=== PATIENT | female | born 1975 | race Caucasian/White ===

== ENCOUNTER 2019-05-13 00:31 | Emergency (ER) | payer OTHER, MEDICARE ==
[~2019-05-13] VITALS: Ht 160 cm; Wt 102.7 kg
[~2019-05-13 00:31] MED LIST: ACTOS 45MG45 MG/TAB PO; ALDACTONE 25MG25 M1 PO; CAMBIA50 MG PO; CELEXA 20MG20 MG/TAB PO; CLINDAMAX TP; COREG 6.256.25 MG/TA PO; DESYREL 50MG50 MG PO; GLUCOPHAGE1000 MG PO; GLUCOTROL10 MG PO; LEVOXYL0.175 MG PO; LORTAB 5/500 501 TAB PO; NEURONTIN300 MG/CAP PO; PLAQUENIL 200M200 MG PO; PRAVACHOL 20MG20 MG PO; PRINZIDE 25 MG-1 TAB PO; SOMA 350MG350 MG/TAB PO; [UNRECOGNIZED DRUG - OTHER] PO
[2019-05-13 00:51] VITALS: TEMP 98.5
[2019-05-13 01:23] LABS: BASO # 0.1 (0.0-0.2); BASO % 0.8 % (0.0-2.0); EOS # 0.2 (0.0-0.7); EOS % 1.4 % (0-4.0); GRAN # 11.3 (1.4-6.5); GRAN % 70.6 % (42.2-75.2); HEMATOCRIT 41.3 % (37.0-47.0); HEMOGLOBIN 14.3 g/dl (12.5-16.0); LYMPH # 3.7 (1.2-3.4); LYMPH % 23.1 % (20.0-51.0); MEAN CELL VOLUME 85 fl (80.0-100.0); MEAN CORPUSCULAR HEMOGLOBIN 30 pg (27.0-31.0); MEAN CORPUSCULAR HGB CONC 35 g/dl (33.0-37.0); MEAN PLATELET VOLUME 10.3 fl (7.4-10.4); MONO # 0.6 (0.1-0.6); MONO % 3.7 % (1.7-9.3); PLATELET COUNT 354 K/mm3 (130-400); RED BLOOD COUNT 4.85 M/mm3 (4.10-5.30); REDCELL DISTRIBUTION WIDTH-CV 13.2 % (11.5-14.5)
[2019-05-13 01:36] LABS: ALBUMIN 3.9 gm/dL (3.5-5.0); BILIRUBIN,TOTAL 0.4 mg/dL (0.0-1.0); CALCIUM 9.4 mg/dL (8.4-10.2); CREATININE, serum 1.18 (0.52-1.25); POTASSIUM 3.8 mmol/L (3.4-5.0)
[2019-05-13] MEDS ORDERED: NORCO 325 MG-101 TAB PO (03:18)
[2019-05-13] MEDS ORDERED: DOXYCYCLINE HY100 MG PO (03:19)
[2019-05-13 03:28] LABS: COLLECTION METHOD CLEAN CATCH
[2019-05-13] MEDS ORDERED: PROMETHAZINE12.5 M5 PO (03:35)
[2019-05-13 03:42] LABS: PH 7 (5-8); SQUAMOUS EPITHELIAL 0-2 /hpf; URINE APPEARANCE Clear; URINE BACTERIA None Seen /hpf; URINE BILIRUBIN Negative (NEGATIVE); URINE BLOOD Negative (NEGATIVE); URINE COLOR Yellow; URINE GLUCOSE Negative (NEGATIVE); URINE KETONE Trace (NEGATIVE); URINE LEUKOCYTE ESTERASE Negative (NEGATIVE); URINE NITRATE Negative (NEGATIVE); URINE PROTEIN(semi-quant) Negative (NEGATIVE); URINE RBC 0-2 /hpf; URINE UROBILINOGEN Negative (NEGATIVE)
[2019-05-13 03:48] VITALS: BP 107/62; PULSE 78
== END 2019-05-13 03:53 | disposition home or self-care (01) ==
LOC: COL.ER 00:31
PROVIDERS: Nurse Practitioner Primary Care
DX: K52.9 Noninfective gastroenteritis and colitis, unspecified (principal); M79.7 Fibromyalgia; G43.909 Migraine, unspecified, not intractable, without status migrainosus; E11.9 Type 2 diabetes mellitus without complications; E03.9 Hypothyroidism, unspecified; I10 Essential (primary) hypertension; F17.210 Nicotine dependence, cigarettes, uncomplicated; Z90.710 Acquired absence of both cervix and uterus; Z79.84 Long term (current) use of oral hypoglycemic drugs
CPT/HCPCS: J2405; J2550; J7030; Q9967

== ENCOUNTER 2019-05-20 21:01 | Emergency (ER) | payer OTHER, MEDICARE ==
[~2019-05-20] VITALS: Ht 160 cm; Wt 102.7 kg
[~2019-05-20 21:01] MED LIST changes: +DOXYCYCLINE HY100 MG PO; +NORCO 325 MG-101 TAB PO; +PROMETHAZINE12.5 M5 PO
[2019-05-20 21:14] VITALS: TEMP 98.1
[2019-05-20 21:46] LABS: BASO # 0.1 (0.0-0.2); BASO % 0.7 % (0.0-2.0); EOS # 0.4 (0.0-0.7); EOS % 2.4 % (0-4.0); GRAN # 9.8 (1.4-6.5); GRAN % 66.4 % (42.2-75.2); HEMATOCRIT 41.4 % (37.0-47.0); LYMPH # 3.7 (1.2-3.4); LYMPH % 25.1 % (20.0-51.0); MEAN CELL VOLUME 86 fl (80.0-100.0); MEAN CORPUSCULAR HEMOGLOBIN 29 pg (27.0-31.0); MEAN CORPUSCULAR HGB CONC 34 g/dl (33.0-37.0); MEAN PLATELET VOLUME 10.9 fl (7.4-10.4); MONO # 0.8 (0.1-0.6); MONO % 5.1 % (1.7-9.3); PLATELET COUNT 302 K/mm3 (130-400); RED BLOOD COUNT 4.82 M/mm3 (4.10-5.30); REDCELL DISTRIBUTION WIDTH-CV 13.2 % (11.5-14.5)
[2019-05-20 21:58] LABS: ALANINE AMINOTRANSFERASE 49 U/L (9-52); ALBUMIN 3.5 gm/dL (3.5-5.0); ALKALINE PHOSPHATASE 122 U/L (50-136); ANION GAP 10 mmol/L (7-16); AST,SGOT 37 U/L (15-37); BILIRUBIN,TOTAL 0.6 mg/dL (0.0-1.0); BLOOD UREA NITROGEN 12 mg/dL (7-17); CALCIUM 9.2 mg/dL (8.4-10.2); CARBON DIOXIDE 22 mmol/L (22-30); CHLORIDE 104 mmol/L (98-107); CREATININE, serum 0.98 (0.52-1.25); GLUCOSE 144 mg/dL (74-106); LIPASE 54 U/L (23-300); POTASSIUM 3.9 mmol/L (3.4-5.0); SODIUM 135 mmol/L (137-145); TOTAL PROTEIN 6.5 gm/dL (6.4-8.2)
[2019-05-20 21:59] LABS: C-REACTIVE PROTEIN < 0.5 mg/dL (0.0-0.9)
[2019-05-21 00:04] LABS: COLLECTION METHOD CLEAN CATCH
[2019-05-21 00:19] LABS: MUCOUS Present /lpf; PH 5 (5-8); URINE APPEARANCE Hazy; URINE BACTERIA None Seen /hpf; URINE BILIRUBIN Negative (NEGATIVE); URINE BLOOD Negative (NEGATIVE); URINE COLOR Amber; URINE GLUCOSE Negative (NEGATIVE); URINE KETONE Negative (NEGATIVE); URINE LEUKOCYTE ESTERASE 1+ (NEGATIVE); URINE NITRATE Negative (NEGATIVE); URINE PROTEIN(semi-quant) Negative (NEGATIVE); URINE UROBILINOGEN Negative (NEGATIVE)
[2019-05-21] MEDS ORDERED: OMNICEF 300MG300 MG PO (00:25)
[2019-05-21] MEDS ORDERED: PHENERGAN 25 TA25 MG PO (00:27)
[2019-05-21 00:46] VITALS: BP 106/70; PULSE 76
== END 2019-05-21 00:59 | disposition home or self-care (01) ==
LOC: COL.ER 21:01
PROVIDERS: Physician Assistant
DX: K29.70 Gastritis, unspecified, without bleeding (principal); N39.0 Urinary tract infection, site not specified; Z79.84 Long term (current) use of oral hypoglycemic drugs
CPT/HCPCS: A4216; J0696; J1885; J2405; J2550; J7030; Q9967

== ENCOUNTER 2019-10-24 20:46 | Emergency (ER) | payer OTHER ==
[~2019-10-24] VITALS: Ht 160 cm; Wt 57.3 kg
[~2019-10-24 20:46] MED LIST changes: +OMNICEF 300MG300 MG PO; +PHENERGAN 25 TA25 MG PO
[2019-10-24 21:51] LABS: BASO # 0.1 (0.0-0.2); BASO % 0.5 % (0.0-2.0); EOS # 0.1 (0.0-0.7); GRAN # 10.4 (1.4-6.5); GRAN % 77.4 % (42.2-75.2); HEMOGLOBIN 14.4 g/dl (12.5-16.0); LYMPH # 2.2 (1.2-3.4); LYMPH % 16.1 % (20.0-51.0); MEAN CELL VOLUME 86 fl (80.0-100.0); MEAN CORPUSCULAR HEMOGLOBIN 29 pg (27.0-31.0); MEAN CORPUSCULAR HGB CONC 34 g/dl (33.0-37.0); MEAN PLATELET VOLUME 10.4 fl (7.4-10.4); MONO # 0.6 (0.1-0.6); MONO % 4.6 % (1.7-9.3); PLATELET COUNT 225 K/mm3 (130-400); RED BLOOD COUNT 5.02 M/mm3 (4.10-5.30); REDCELL DISTRIBUTION WIDTH-CV 14.1 % (11.5-14.5)
[2019-10-24 21:58] LABS: ALBUMIN 3.9 gm/dL (3.5-5.0); BILIRUBIN,TOTAL 0.6 mg/dL (0.0-1.0); CALCIUM 9.3 mg/dL (8.4-10.2); CREATININE, serum 0.71 (0.52-1.25); POTASSIUM 3.5 mmol/L (3.4-5.0); TOTAL PROTEIN 7.4 gm/dL (6.4-8.2)
[2019-10-24 22:12] LABS: COLLECTION METHOD CLEAN CATCH
[2019-10-24 22:18] LABS: HYALINE CAST >12 /lpf; MUCOUS Present /lpf; PH 5 (5-8); URINE APPEARANCE Cloudy; URINE BACTERIA Rare /hpf; URINE BILIRUBIN Positive (NEGATIVE); URINE BLOOD Negative (NEGATIVE); URINE COLOR Amber; URINE GLUCOSE Negative (NEGATIVE); URINE KETONE Trace (NEGATIVE); URINE LEUKOCYTE ESTERASE Negative (NEGATIVE); URINE NITRATE Negative (NEGATIVE); URINE PROTEIN(semi-quant) 2+ (NEGATIVE); URINE RBC 0-2 /hpf
[2019-10-24] MEDS ORDERED: PHENERGAN 25 TA25 MG PO (23:34)
[2019-10-24] MEDS ORDERED: ZOFRAN ODT4 MG PO (23:34)
[2019-10-24] MEDS ORDERED: PHENERGAN25 MG RC (23:34)
[2019-10-25 00:45] VITALS: BP 128/72; PULSE 74; TEMP 98.2
== END 2019-10-25 00:55 | disposition home or self-care (01) ==
LOC: COL.ER 20:46
PROVIDERS: Emergency Medicine
DX: R11.2 Nausea with vomiting, unspecified (principal); R10.13 Epigastric pain; E11.9 Type 2 diabetes mellitus without complications; I10 Essential (primary) hypertension; F17.210 Nicotine dependence, cigarettes, uncomplicated; E03.9 Hypothyroidism, unspecified; E66.9 Obesity, unspecified; E78.5 Hyperlipidemia, unspecified; Z90.710 Acquired absence of both cervix and uterus; Z90.49 Acquired absence of other specified parts of digestive tract; Z79.84 Long term (current) use of oral hypoglycemic drugs
CPT/HCPCS: J1885; J2405; J7030

== ENCOUNTER 2019-12-10 13:24 | Day surgery (SDC) | payer OTHER ==
[~2019-12-10] VITALS: Ht 160 cm; Wt 96.8 kg
[~2019-12-10 13:24] MED LIST changes: +PHENERGAN25 MG RC; +ZOFRAN ODT4 MG PO
[2019-12-19 09:24] VITALS: BP 115/72; PULSE 80; TEMP 97.3
[2019-12-19] MEDS ORDERED: SYNTHROID0.2 MG/TAB PO (09:38)
[2019-12-19] MEDS ORDERED: INDERAL 10MG10 MG PO (09:44)
[2019-12-19] MEDS ORDERED: FIORICET 325 MG1 TA1 PO (09:44)
[2019-12-19] MEDS ORDERED: PRIL40 PO (09:45)
[2019-12-19] MEDS ORDERED: SOMA 350MG350 MG/TAB PO (09:45)
[2019-12-19] MEDS ORDERED: TOPROL XL 25MG25 MG PO (09:46)
[2019-12-19] MEDS ORDERED: MOVANTIK25 MG PO (09:47)
[2019-12-19 11:05] VITALS: BP 108/62; PULSE 62; TEMP 98
[2019-12-19 11:20] VITALS: BP 94/68; PULSE 64
[2019-12-19 11:35] VITALS: BP 123/70; PULSE 64
== END 2019-12-19 ==
LOC: SDCO
DX: D12.5 Benign neoplasm of sigmoid colon (principal); R19.7 Diarrhea, unspecified; K57.30 Diverticulosis of large intestine without perforation or abscess without bleeding; K64.0 First degree hemorrhoids; D17.5 Benign lipomatous neoplasm of intra-abdominal organs; K29.50 Unspecified chronic gastritis without bleeding; K21.9 Gastro-esophageal reflux disease without esophagitis; Z91.012 Allergy to eggs; Z79.84 Long term (current) use of oral hypoglycemic drugs; Z79.899 Other long term (current) drug therapy; E03.9 Hypothyroidism, unspecified; E78.5 Hyperlipidemia, unspecified; G89.29 Other chronic pain; Z90.710 Acquired absence of both cervix and uterus; Z87.440 Personal history of urinary (tract) infections; G43.909 Migraine, unspecified, not intractable, without status migrainosus; F17.210 Nicotine dependence, cigarettes, uncomplicated; E66.9 Obesity, unspecified; Z68.38 Body mass index [BMI] 38.0-38.9, adult; I10 Essential (primary) hypertension; M06.9 Rheumatoid arthritis, unspecified; E11.43 Type 2 diabetes mellitus with diabetic autonomic (poly)neuropathy; K31.84 Gastroparesis; Z20.828 Contact with and (suspected) exposure to other viral communicable diseases
CPT/HCPCS: J2704; J3010; J7120

== ENCOUNTER → 2020-02-06 | Outpatient (CLI) | payer OTHER, MEDICARE ==
[~2020-02-06] MED LIST changes: +FIORICET 325 MG1 TA1 PO; +INDERAL 10MG10 MG PO; +MOVANTIK25 MG PO; +PRIL40 PO; +SYNTHROID0.2 MG/TAB PO; +TOPROL XL 25MG25 MG PO
== END ==
LOC: COL.RAD 08:00
DX: R19.7 Diarrhea, unspecified (principal); R11.0 Nausea; R11.10 Vomiting, unspecified; R63.4 Abnormal weight loss
CPT/HCPCS: A9541

== ENCOUNTER 2020-04-27 12:58 | Emergency (ER) | payer OTHER, MEDICARE ==
[~2020-04-27] VITALS: Ht 160 cm; Wt 90.9 kg
[2020-04-27 13:06] VITALS: TEMP 98.4
[2020-04-27 14:25] LABS: BASO # 0.1 (0.0-0.2); BASO % 0.4 % (0.0-2.0); EOS % 0.3 % (0-4.0); GRAN # 9.5 (1.4-6.5); GRAN % 80.2 % (42.2-75.2); HEMATOCRIT 37.2 % (37.0-47.0); LYMPH # 1.6 (1.2-3.4); LYMPH % 13.9 % (20.0-51.0); MEAN CELL VOLUME 85 fl (80.0-100.0); MEAN CORPUSCULAR HEMOGLOBIN 30 pg (27.0-31.0); MEAN CORPUSCULAR HGB CONC 35 g/dl (33.0-37.0); MEAN PLATELET VOLUME 9.4 fl (7.4-10.4); MONO # 0.6 (0.1-0.6); MONO % 4.9 % (1.7-9.3); PLATELET COUNT 385 K/mm3 (130-400); RED BLOOD COUNT 4.39 M/mm3 (4.10-5.30); REDCELL DISTRIBUTION WIDTH-CV 13.9 % (11.5-14.5)
[2020-04-27 14:29] LABS: ALBUMIN 2.9 gm/dL (3.5-5.0); BILIRUBIN,TOTAL 0.6 mg/dL (0.0-1.0); CALCIUM 8.5 mg/dL (8.4-10.2); CREATININE, serum 0.69 (0.52-1.25); POTASSIUM 3.3 mmol/L (3.4-5.0); TOTAL PROTEIN 5.9 gm/dL (6.4-8.2)
[2020-04-27] MEDS ORDERED: PROMETHAZINE12.5 M5 PO (16:55)
[2020-04-27 17:20] VITALS: BP 94/58; PULSE 81
== END 2020-04-27 17:22 | disposition home or self-care (01) ==
LOC: COL.ER 12:58
PROVIDERS: Nurse Practitioner
DX: R11.2 Nausea with vomiting, unspecified (principal); E87.6 Hypokalemia; I10 Essential (primary) hypertension; E11.9 Type 2 diabetes mellitus without complications; E03.9 Hypothyroidism, unspecified; M79.7 Fibromyalgia; Z90.710 Acquired absence of both cervix and uterus; Z32.02 Encounter for pregnancy test, result negative; Z91.040 Latex allergy status; Z79.84 Long term (current) use of oral hypoglycemic drugs; Z79.890 Hormone replacement therapy
CPT/HCPCS: J2405; J2550; J7030